=== PATIENT | female | born 1985 | race Caucasian/White ===

== ENCOUNTER 2019-02-24 11:02 | Emergency (ER) | payer SELFPAY, MEDICAID ==
[2019-02-24 12:57] LABS: ADD MAN DIFF? NO
[2019-02-24 13:04] LABS: WHITE BLOOD COUNT 12.3 10^3/ul (4.8-10.8)
[2019-02-24 13:04] LABS: BASOPHILS % 0.3 % (0.0-2.0); EOSINOPHILS # 0.1 10^3/ul (0.0-0.5); EOSINOPHILS % 1.1 % (0.0-7.0); HEMATOCRIT 35.1 % (37.0-47.0); HEMOGLOBIN 12.3 g/dl (12.0-16.0); LYMPHOCYTES # 2.4 10^3/ul (0.8-2.9); LYMPHOCYTES % 19.7 % (15.0-51.0); MEAN CORPUSCULAR HEMOGLOBIN 31.9 pg (29.0-33.0); MEAN CORPUSCULAR VOLUME 91.2 fl (82.0-101.0); MEAN PLATELET VOLUME 8.9 fl (7.4-10.4); MONOCYTE # 0.9 10^3/ul (0.3-0.9); MONOCYTES % 7.4 % (0.0-11.0); NEUTROPHIL # 8.7 10^3/ul (1.6-7.5); NEUTROPHILS % 70.9 % (39.0-77.0); PLATELET COUNT 240 10^3/UL (140-415); RED BLOOD COUNT 3.85 10^6/ul (4.20-5.40); RED CELL DISTRIBUTION WIDTH 12.6 % (11.5-14.5)
[2019-02-24 13:22] LABS: ALANINE AMINOTRANSFERASE 18 IU/L (13-69); ALBUMIN 3.7 g/dl (3.3-4.9); ALBUMIN/GLOBULIN RATIO 1.19; ALKALINE PHOSPHATASE 57 IU/L (42-121); ANION GAP 7 (5-13); ASPARTATE AMINO TRANSFERASE 17 IU/L (15-46); BILIRUBIN,INDIRECT 0.6 mg/dl (0-1.1); BILIRUBIN,TOTAL 0.6 mg/dl (0.2-1.3); BLOOD UREA NITROGEN 7 mg/dl (7-20); CALCIUM 9.5 mg/dl (8.4-10.2); CARBON DIOXIDE 23 mmol/L (21-31); CHLORIDE 106 mmol/L (97-110); CREATININE 0.45 mg/dl (0.44-1.00); Estimated GFR > 60 mL/min (>60); GLUCOSE 83 mg/dl (70-220); POTASSIUM 3.9 mmol/L (3.5-5.1); SODIUM 136 mmol/L (135-144); TOTAL PROTEIN 6.8 g/dl (6.1-8.1)
[2019-02-24 13:30] LABS: INR 0.89; PROTIME 12.2 Sec (11.9-14.9)
[2019-02-24 13:31] LABS: PARTIAL THROMBOPLASTIN TIME 30.6 Sec (23.0-35.0)
== END 2019-02-24 14:20 | disposition home or self-care (01) ==
LOC: E/R 11:02
DX: O20.8 Other hemorrhage in early pregnancy (principal); K92.1 Melena; Z3A.22 22 weeks gestation of pregnancy
CPT/HCPCS: 80053; 85025; 85610; 85730; 86850; 86900; 86901; 99283

== ENCOUNTER 2019-05-13 04:51 | Emergency (ER) | payer BC, MEDICAID ==
[2019-05-13] MEDS: ACETAMINOPHEN 500 MG TAB PO (06:25)
== END 2019-05-13 06:29 | disposition home or self-care (01) ==
LOC: FTE 04:51
DX: O99.89 Other specified diseases and conditions complicating pregnancy, childbirth and the puerperium (principal); H92.02 Otalgia, left ear; Z3A.33 33 weeks gestation of pregnancy
CPT/HCPCS: 99283

== ENCOUNTER 2019-06-19 17:31 | Outpatient (CLI) | payer BC ==
[2019-06-19] MEDS: LACTATED RINGER'S 1,000 ML IV ×2 (19:20→23:38)
[2019-06-19 19:22] LABS: ADD MAN DIFF? NO
[2019-06-19 19:23] LABS: WHITE BLOOD COUNT 13.1 10^3/ul (4.8-10.8)
[2019-06-19 19:23] LABS: BASOPHILS % 0.2 % (0.0-2.0); EOSINOPHILS # 0.1 10^3/ul (0.0-0.5); EOSINOPHILS % 0.5 % (0.0-7.0); HEMOGLOBIN 14.6 g/dl (12.0-16.0); LYMPHOCYTES # 1.1 10^3/ul (0.8-2.9); LYMPHOCYTES % 8.4 % (15.0-51.0); MEAN CORPUSCULAR HEMOGLOBIN 31.1 pg (29.0-33.0); MEAN CORPUSCULAR VOLUME 91.7 fl (82.0-101.0); MEAN PLATELET VOLUME 9.5 fl (7.4-10.4); MONOCYTE # 0.6 10^3/ul (0.3-0.9); MONOCYTES % 4.6 % (0.0-11.0); NEUTROPHIL # 11.2 10^3/ul (1.6-7.5); NEUTROPHILS % 85.5 % (39.0-77.0); PLATELET COUNT 227 10^3/UL (140-415); RED BLOOD COUNT 4.69 10^6/ul (4.20-5.40); RED CELL DISTRIBUTION WIDTH 12.7 % (11.5-14.5)
[2019-06-19 19:43] LABS: ALANINE AMINOTRANSFERASE 27 IU/L (13-69); ALBUMIN/GLOBULIN RATIO 1.11; ALKALINE PHOSPHATASE 146 IU/L (42-121); ANION GAP 10 (5-13); ASPARTATE AMINO TRANSFERASE 27 IU/L (15-46); BLOOD UREA NITROGEN 9 mg/dl (7-20); CALCIUM 9.5 mg/dl (8.4-10.2); CARBON DIOXIDE 23 mmol/L (21-31); CHLORIDE 105 mmol/L (97-110); CREATININE 0.48 mg/dl (0.44-1.00); Estimated GFR > 60 mL/min (>60); GLUCOSE 69 mg/dl (70-220); POTASSIUM 3.6 mmol/L (3.5-5.1); SODIUM 138 mmol/L (135-144); TOTAL PROTEIN 7.6 g/dl (6.1-8.1)
[2019-06-19] MEDS: ONDANSETRON 4 MG INJ IV (19:57)
[2019-06-20 00:04] LABS: ADD UMIC YES; UR ASCORBIC ACID 20 mg/dL (NEGATIVE); UR BACTERIA FEW /HPF (NONE SEEN); UR BILIRUBIN (Dip) NEGATIVE (NEGATIVE); UR BLOOD (Dip) NEGATIVE (NEGATIVE); UR CLARITY CLOUDY (CLEAR); UR COLOR AMBER (YELLOW); UR GLUCOSE (Dip) NEGATIVE (NEGATIVE); UR KETONES (Dip) TRACE mg/dL (NEGATIVE); UR LEUKOCYTE ESTERASE (Dip) NEGATIVE Leu/ul (NEGATIVE); UR MUCUS FEW /HPF (NONE SEEN); UR NITRITE (Dip) NEGATIVE (NEGATIVE); UR NONSQUAMOUS EPITHELIAL CELL 1 /HPF (NONE SEEN); UR RBC 3 /HPF (0-5); UR SPECIFIC GRAVITY (Dip) 1.031 (1.003-1.030); UR SQUAMOUS EPITHELIAL CELL MANY /HPF (FEW); UR TOTAL PROTEIN (Dip) 1+ mg/dl (NEGATIVE); UR UROBILINOGEN (Dip) 1+ mg/dL (NEGATIVE); UR WBC 4 /HPF (0-5)
[2019-06-20] MEDS ORDERED: LACTATED RINGER'S 1,000 ML IV (01:55)
[2019-06-20] MEDS ORDERED: LIDOCAINE 1% (MPF) 30 ML INJ INJ (02:00)
[2019-06-20] MEDS ORDERED: BUTORPHANOL 2 MG INJ IV (02:00)
[2019-06-20] MEDS ORDERED: MISOPROSTOL 200 MCG TAB PR (02:00)
[2019-06-20] MEDS ORDERED: IBUPROFEN 600 MG TAB PO (02:00)
[2019-06-20] MEDS ORDERED: METHYLERGONOVINE 0.2 MG INJ IM (02:00)
[2019-06-20] MEDS ORDERED: OXYTOCIN 30 UNITS/LR 500 ML IV ×3 (02:00)
[2019-06-20] MEDS ORDERED: CARBOPROST 250 MCG INJ IM (02:00)
[2019-06-20 06:46] LABS: INR 0.98; PROTIME 13.1 Sec (11.9-14.9)
[2019-06-20 06:47] LABS: PARTIAL THROMBOPLASTIN TIME 32.2 Sec (23.0-35.0)
[2019-06-20 07:21] LABS: HEPATITIS B SURFACE ANTIGEN NEGATIVE (NEGATIVE)
[2019-06-20] MEDS: LACTATED RINGER'S 1,000 ML IV (08:39)
[2019-06-20 09:37] LABS: HEPATITIS B SURFACE ANTIGEN NEGATIVE (NEGATIVE)
[2019-06-20 09:59] LABS: AMPHETAMINE/METHAMPHETAMINE Negative (NEGATIVE); BARBITURATES Negative (NEGATIVE); BENZODIAZEPINES Negative (NEGATIVE); CANNABINOIDS Negative (NEGATIVE); COCAINE Negative (NEGATIVE); OPIATES Negative (NEGATIVE)
[2019-06-20 16:08] LABS: RAPID PLASMA REAGIN NONREACTIVE (NR)
== END 2019-06-20 14:00 | disposition home or self-care (01) ==
LOC: OBT 06-20 01:45 → L-D 06-20 01:45 → OBT 17:31 → L-D 06-20 03:03 → OBT 06-20 14:00
DX: O21.0 Mild hyperemesis gravidarum (principal); Z3A.38 38 weeks gestation of pregnancy
CPT/HCPCS: 36415; 76816; 76818; 80053; 80307; 81001; 85025; 85610; 85730; 86592; 86850; 86900; 86901; 87340; 96360; 96361

== ENCOUNTER 2019-07-04 15:41 | Inpatient (IN) | payer BC ==
[2019-07-04] MEDS ORDERED: CARBOPROST 250 MCG INJ IM (18:00)
[2019-07-04] MEDS ORDERED: BUTORPHANOL 2 MG INJ IV ×2 (18:00)
[2019-07-04] MEDS ORDERED: LIDOCAINE 1% (MPF) 30 ML INJ INJ (18:00)
[2019-07-04] MEDS ORDERED: MISOPROSTOL 200 MCG TAB PR (18:00)
[2019-07-04] MEDS ORDERED: METHYLERGONOVINE 0.2 MG INJ IM (18:00)
[2019-07-04] MEDS ORDERED: OXYTOCIN 30 UNITS/LR 500 ML IV (18:00)
[2019-07-04 18:31] LABS: ADD MAN DIFF? NO
[2019-07-04 18:33] LABS: WHITE BLOOD COUNT 12.1 10^3/ul (4.8-10.8)
[2019-07-04 18:33] LABS: BASOPHILS % 0.2 % (0.0-2.0); EOSINOPHILS # 0.1 10^3/ul (0.0-0.5); EOSINOPHILS % 0.7 % (0.0-7.0); HEMATOCRIT 41.1 % (37.0-47.0); LYMPHOCYTES # 2.9 10^3/ul (0.8-2.9); LYMPHOCYTES % 23.5 % (15.0-51.0); MEAN CORPUSCULAR HEMOGLOBIN 31.6 pg (29.0-33.0); MEAN CORPUSCULAR HGB CONC 34.1 g/dl (32.0-37.0); MEAN CORPUSCULAR VOLUME 92.8 fl (82.0-101.0); MEAN PLATELET VOLUME 9.1 fl (7.4-10.4); MONOCYTES % 8.6 % (0.0-11.0); NEUTROPHILS % 66.3 % (39.0-77.0); PLATELET COUNT 248 10^3/UL (140-415); RED BLOOD COUNT 4.43 10^6/ul (4.20-5.40); RED CELL DISTRIBUTION WIDTH 12.4 % (11.5-14.5)
[2019-07-04 18:52] LABS: PROTIME 12.3 Sec (11.9-14.9)
[2019-07-04 18:53] LABS: PARTIAL THROMBOPLASTIN TIME 30.9 Sec (23.0-35.0)
[2019-07-04 19:17] LABS: AMPHETAMINE/METHAMPHETAMINE Negative (NEGATIVE); BARBITURATES Negative (NEGATIVE); BENZODIAZEPINES Negative (NEGATIVE); CANNABINOIDS Negative (NEGATIVE); COCAINE Negative (NEGATIVE); OPIATES Negative (NEGATIVE)
[2019-07-04 19:42] LABS: HEPATITIS B SURFACE ANTIGEN NEGATIVE (NEGATIVE)
[2019-07-04] MEDS: LACTATED RINGER'S 1,000 ML IV (19:50)
[2019-07-04] MEDS: MISOPROSTOL 50 MCG CAPSULE PO (21:05)
[2019-07-05] MEDS: LACTATED RINGER'S 1,000 ML IV ×3 (02:53→19:37)
[2019-07-05] MEDS: MISOPROSTOL 50 MCG CAPSULE PO ×5 (06:43→23:54)
[2019-07-05 15:50] LABS: RAPID PLASMA REAGIN NONREACTIVE (NR)
[2019-07-05] MEDS ORDERED: MISOPROSTOL 50 MCG CAPSULE (23:45)
[2019-07-06] MEDS: LACTATED RINGER'S 1,000 ML IV ×5 (01:04→15:36)
[2019-07-06] MEDS ORDERED: DIPHENHYDRAMINE 50 MG INJ IV (02:00)
[2019-07-06] MEDS ORDERED: ONDANSETRON 4 MG INJ IV (02:00)
[2019-07-06] MEDS ORDERED: NALOXONE (0.4 MG/ML) INJ IV (02:00)
[2019-07-06] MEDS: OXYTOCIN 30 UNITS/LR 500 ML IV (06:31)
[2019-07-06] MEDS: FENTAnyl 2MCG/ML-ROPIV 0.2% 100 ML BAG EPI ×2 (11:13→19:30)
[2019-07-07] MEDS ORDERED: MINERAL OIL LIGHT 10 ML VIAL (00:22)
[2019-07-07] MEDS: OXYTOCIN 30 UNITS/LR 500 ML IV ×3 (00:47→04:46)
[2019-07-07] MEDS ORDERED: ACETAMINOPHEN 325 MG TAB PO (01:00)
[2019-07-07] MEDS ORDERED: METHYLERGONOVINE 0.2 MG INJ IM (01:00)
[2019-07-07] MEDS ORDERED: OXYTOCIN 30 UNITS/LR 500 ML IV (01:00)
[2019-07-07] MEDS ORDERED: MISOPROSTOL 200 MCG TAB PR (01:00)
[2019-07-07] MEDS ORDERED: OXYCODONE/ASPIRIN (4.88/325) TAB PO (01:00)
[2019-07-07] MEDS ORDERED: CARBOPROST 250 MCG INJ IM (01:00)
[2019-07-07] MEDS ORDERED: NACL 0.9% 3 ML SYG IV (01:00)
[2019-07-07] MEDS ORDERED: SENNA/DOCUSATE NA (8.6MG/50MG) TAB PO (01:00)
[2019-07-07] MEDS ORDERED: ONDANSETRON 4 MG INJ IV ×2 (01:00→02:30)
[2019-07-07] MEDS: OXYCODONE/ASPIRIN (4.88/325) TAB PO ×2 (02:56→21:27)
[2019-07-07] MEDS: LANOLIN HPA 1 PKT TOP ×2 (02:57→16:44)
[2019-07-07] MEDS: WITCH HAZEL/GLYCERIN PAD PR ×2 (02:57→16:44)
[2019-07-07] MEDS: BENZOCAINE 20% 56 ML SPRAY TOP ×2 (02:57→16:44)
[2019-07-07] MEDS: IBUPROFEN 600 MG TAB PO ×3 (05:52→18:00)
[2019-07-07] MEDS: SENNA/DOCUSATE NA (8.6MG/50MG) TAB PO ×2 (08:22→21:21)
[2019-07-08] MEDS: IBUPROFEN 600 MG TAB PO ×7 (01:42→23:38)
[2019-07-08] MEDS: OXYCODONE/ASPIRIN (4.88/325) TAB PO ×3 (05:55→23:17)
[2019-07-08 08:22] LABS: ADD MAN DIFF? NO
[2019-07-08 08:31] LABS: WHITE BLOOD COUNT 13.3 10^3/ul (4.8-10.8)
[2019-07-08 08:31] LABS: BASOPHIL # 0.1 10^3/ul (0.0-0.1); BASOPHILS % 0.5 % (0.0-2.0); EOSINOPHILS # 0.2 10^3/ul (0.0-0.5); EOSINOPHILS % 1.2 % (0.0-7.0); HEMATOCRIT 37.4 % (37.0-47.0); HEMOGLOBIN 12.6 g/dl (12.0-16.0); LYMPHOCYTES # 4.2 10^3/ul (0.8-2.9); LYMPHOCYTES % 31.3 % (15.0-51.0); MEAN CORPUSCULAR HEMOGLOBIN 31.4 pg (29.0-33.0); MEAN CORPUSCULAR HGB CONC 33.7 g/dl (32.0-37.0); MEAN CORPUSCULAR VOLUME 93.3 fl (82.0-101.0); MEAN PLATELET VOLUME 9.4 fl (7.4-10.4); MONOCYTE # 0.9 10^3/ul (0.3-0.9); MONOCYTES % 6.8 % (0.0-11.0); NEUTROPHILS % 59.7 % (39.0-77.0); PLATELET COUNT 184 10^3/UL (140-415); RED BLOOD COUNT 4.01 10^6/ul (4.20-5.40); RED CELL DISTRIBUTION WIDTH 13.1 % (11.5-14.5)
[2019-07-08] MEDS: WITCH HAZEL/GLYCERIN PAD PR (08:49)
[2019-07-08] MEDS: BENZOCAINE 20% 56 ML SPRAY TOP (08:49)
[2019-07-08] MEDS: LANOLIN HPA 1 PKT TOP (08:50)
[2019-07-08] MEDS: SENNA/DOCUSATE NA (8.6MG/50MG) TAB PO ×2 (08:50→22:01)
[2019-07-09] MEDS: IBUPROFEN 600 MG TAB PO ×2 (05:42→11:32)
[2019-07-09] MEDS: WITCH HAZEL/GLYCERIN PAD PR (05:42)
[2019-07-09] MEDS: BENZOCAINE 20% 56 ML SPRAY TOP (05:44)
[2019-07-09] MEDS: SENNA/DOCUSATE NA (8.6MG/50MG) TAB PO (09:23)
[2019-07-09] MEDS: DIPHTH/TET/ACEL PERTUSS (ADULT) 0.5 ML VIAL IM* (13:56)
== END 2019-07-09 15:05 | disposition home or self-care (01) | DRG 807 ==
LOC: OBT 15:41 → PP1 07-07 02:04 → L-D 15:41 → OBT 17:00 → L-D 17:00
PROC: 10E0XZZ Delivery of Products of Conception, External Approach (ICD-10-PCS; principal; 2019-07-07)
PROC: 3E033VJ Introduction of Other Hormone into Peripheral Vein, Percutaneous Approach (ICD-10-PCS; 2019-07-07)
DX: O48.0 Post-term pregnancy (principal); O70.1 Second degree perineal laceration during delivery; Z3A.41 41 weeks gestation of pregnancy; Z37.0 Single live birth
CPT/HCPCS: 62322; 76815; 76818; 80307; 85025; 85610; 85730; 86592; 86850; 86900; 86901; 87340; 90715